=== PATIENT | male | born 1950 | race Two or more races ===

== ENCOUNTER 2023-05-06 14:02 | Emergency (ER) | payer OTHER ==
[~2023-05-06] VITALS: Ht 182.9 cm; Wt 107.9 kg
[2023-05-06] MEDS: cloNIDine HCL 0.1 MG TAB PO ONE (14:33)
[2023-05-06 15:13] LABS: Basophils # (auto) 0 10 ^3/uL (0-0.2); Basophils % (auto) 0.4 % (0.0-2.0); Eosinophils # (auto) 0.1 10 ^3/uL (0-0.8); Eosinophils % (auto) 1.7 % (0.0-7.0); Hematocrit 40.5 % (41.0-53.0); Hemoglobin 13.3 g/dL (13.5-17.5); Lymphocytes # (auto) 1.5 10 ^3/uL (0.4-5.4); Lymphocytes % (auto) 37.5 % (10.0-50.0); Mean Corpuscular Hemoglobin 28.8 pg (28.0-32.0); Mean Corpuscular Hgb Conc. 32.9 g/dL (32.0-36.0); Mean Corpuscular Volume 87.4 fL (80.0-100.0); Monocytes # (auto) 0.3 10 ^3/uL (0-1.3); Monocytes % (auto) 6.6 % (0.0-12.0); Neutrophils # (auto) 2.1 10 ^3/uL (1.6-8.6); Neutrophils % (auto) 53.8 % (37.0-80.0); Nucleated Red Blood Cells % 0.1 %; Red Blood Cells 4.63 10^6/uL (4.5-5.90); Red Cell Distribution Width 13.3 % (11.8-14.3)
[2023-05-06 15:29] LABS: Chloride 107 mmol/L (98-107); Potassium 4.2 mmol/L (3.5-5.1); Sodium 140 mmol/L (136-145)
[2023-05-06 15:30] LABS: Anion Gap 3 (5-15); Carbon Dioxide 30 mmol/L (20-30)
[2023-05-06 15:31] LABS: Calcium 9.2 mg/dL (8.5-10.1)
[2023-05-06 15:35] LABS: Glucose 100 mg/dL (74-106)
[2023-05-06 15:36] LABS: BUN/Creatinine Ratio 13.6 (10.0-20.0); Blood Urea Nitrogen 15 mg/dL (9-23)
[2023-05-06] MEDS ORDERED: LOSA100T25 PO (16:06)
[2023-05-06 16:52] VITALS: BP 96/57; PULSE 60; RESP 15; TEMP 98.1; O2SAT 100
== END 2023-05-06 16:54 | disposition home or self-care (01) ==
LOC: ER 14:02
DX: I16.0 Hypertensive urgency (principal); I10 Essential (primary) hypertension; R42 Dizziness and giddiness; F12.10 Cannabis abuse, uncomplicated; E78.5 Hyperlipidemia, unspecified
CPT/HCPCS: 36415; 80048; 85025; 93005